=== PATIENT | male | born 1985 | race Caucasian/White ===

== ENCOUNTER 2021-10-20 06:47 | Emergency (ER) | payer OTHER, SELFPAY ==
[2021-10-20 08:33] VITALS: BP 124/87; PULSE 67; RESP 18; TEMP 36.7; O2SAT 99; BMI 22.6
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
== END 2021-10-20 10:03 | disposition home or self-care (01) ==
PROVIDERS: Emergency Provider Student in an Organized Health Care Education/Training Program
DX: S39.012A Strain of muscle, fascia and tendon of lower back, initial encounter (principal); V73.5XXA Driver of bus injured in collision with car, pick-up truck or van in traffic accident, initial encounter; Y93.89 Activity, other specified; Y92.414 Local residential or business street as the place of occurrence of the external cause; Y99.0 Civilian activity done for income or pay
CPT/HCPCS: 99282; 99283

== ENCOUNTER 2023-05-23 08:14 | Emergency (ER) | payer OTHER, SELFPAY ==
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
[2023-05-23 08:28] VITALS: BP 100/70; BP 137/75; PULSE 74; PULSE 83; RESP 16; TEMP 36.8; O2SAT 98; O2SAT 99; BMI 22.5
[2023-05-23] MEDS: Cyclobenzaprine HCl 5 MG TABLET PO (08:36)
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
== END 2023-05-23 08:50 | disposition home or self-care (01) ==
PROVIDERS: Emergency Provider Emergency Medicine
DX: S39.92XA Unspecified injury of lower back, initial encounter (principal); S13.4XXA Sprain of ligaments of cervical spine, initial encounter; V43.52XA Car driver injured in collision with other type car in traffic accident, initial encounter; Y93.9 Activity, unspecified; Y92.410 Unspecified street and highway as the place of occurrence of the external cause; Y99.8 Other external cause status
CPT/HCPCS: 99283; 99284